=== PATIENT | male | born 1980 | race Caucasian/White ===

== ENCOUNTER 2025-06-12 22:52 | Inpatient (IN) | payer BC, SELFPAY ==
--- NOTE | 2025-06-12 | ECG_ITS ---
Test Reason : cp Blood Pressure : */* mmHG Vent. Rate : 87 BPM Atrial Rate : 87 BPM P-R Int : 122 ms QRS Dur : 84 ms QT Int : 374 ms P-R-T Axes : 66 21 59 degrees QTcB Int : 450 ms Normal sinus rhythm with sinus arrhythmia Normal ECG No previous ECGs available Referred By: Generic ED Physician Electronically Signed By: Desmond Singh
--- NOTE | ~2025-06-12 | CT_ITS ---
CLINICAL HISTORY: L posterior chest pain, pleuritic, prior PE no inj CT angiography chest with contrast. 3D Postprocessing. Comparison: None provided Findings: The heart size is normal. RV/LV ratio is normal. The thoracic aorta is normal caliber. There are multiple pulmonary arterial filling defects in the left lingular branch, left lower lobe segmental arteries, right lower lobe segmental arteries. Thyroid gland is normal. Superior mediastinum is normal. Right middle lobe airspace opacities are present. There is a small left pleural effusion. Thoracic aorta is normal. Anatomic variant common origin of the brachiocephalic and left common carotid artery are present. There is dependent atelectasis. Upper abdomen is normal. No acute osseous fracture. IMPRESSION: 1. Multifocal bilateral lobar and segmental pulmonary arterial filling defects. 2. Platelike atelectasis in the right middle and lower lobes. This document has been electronically signed by: Lance Dumont III, MD PHD on 06/13/2025 01:34:06
[2025-06-12 22:57] VITALS: BP 129/91; PULSE 79; RESP 28; TEMP 36.9; O2SAT 97; BMI 34.4
[2025-06-12 23:25] LABS: MANUAL DIFF FLAG NO
[2025-06-12 23:26] LABS: Hematocrit 40.7 % (42.0-52.0); Hemoglobin 14.7 g/dl (14.0-18.0); Imm Gran Abs Auto 0.04 X10*3/uL (0.00-0.03); Imm Gran Pct Auto 0.4 % (0.0-0.4); Lymphocytes Absolute Auto 3.0 X10*3/uL (1.2-4.9); Mean Corpuscular HGB Conc 36.1 g/dl (31.0-36.0); Mean Corpuscular Hemoglobin 29.9 pg (27.0-33.0); Mean Corpuscular Volume 82.7 fL (80.0-98.0); NRBC Abs Auto 0.000 X10*3/uL (0.0-0.012); NRBC Pct Auto 0.0 /100WBC (0.0-0.2); Platelet Count 230 X10*3/uL (160-400); Red Blood Count 4.92 X10*6/uL (4.60-5.80); White Blood Count 9.9 X10*3/uL (4.8-10.8)
--- NOTE | 2025-06-12 23:28 | ED_ITS ---
HPI - General Adult General Chief complaint: General Medical Stated complaint: CP, SOB, N/V Time Seen by Provider: 06/12/25 23:16 History of Present Illness ED Provider: Sandip Howard MD HPI narrative: 44-year-old male who presents with severe atraumatic left mid and upper back pain. There is no rash there he does report a history of PE with similar pleuritic type pain in the past. 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 Previously had varicose vein surgery prior to the 1st pulmonary embolism that he tells me was diagnosed in [place] in 2017. Not on anticoagulant now Related Data Allergies Allergy/AdvReac Type Severity Reaction Status Date / Time No Known Allergies Allergy Verified 06/12/25 23:07 [facility] Past Medical History Medical History Mood disorder Psoriatic arthritis Psoriasis Social History Social History Patient Tobacco Use Status: Never used Tobacco Smoked in Last 30 Days: No Use of substances other than those prescribed or required for medical reasons: No Advance Directives: No Advance Directives Information Provided: Yes Nutrition Risks: No Nutritional Risk Physical Exam ED Exam Exam: EXAM: Gen: Alert, awake, appears in severe pain leaning to the right side splinting with respiration no cyanosis or labored breathing Head: Atraumatic Eyes: Anicteric, Normal conjunctiva. ENT: Moist mucosa, no pallor. ? Neck: Supple. Skin: ?No observable rash or bruising on exposed or examined skin Respiratory: Splinting. Respiratory rate about 24 no cyanosis. Well-perfused good color in the extremities Cardiovascular: Regular rate and rhythm. No murmurs or rub. Well perfused periphery, warm extremities. No edema. ? Abdominal: No focal tenderness. Soft, no objective distension. No palpable masses or obvious organomegaly. ?No guarding, no rebound tenderness or other peritoneal findings. : No flank tenderness. Neuro: Alert. Gross movement of all extremities intact. ? Psych: Calm. Cooperative. MSK: No grossly visible deformity. Severe tenderness of the musculature along the left midthoracic paraspinal region Vital signs: See flowsheet Vital Signs: Vital Signs - 24 hr 06/12/25 22:57 06/12/25 23:38 06/12/25 23:41 Temperature 98.4 F Pulse Rate 79 76 Respiratory Rate 28 H 22 H Blood Pressure 129/91 H Pulse Oximetry 97 96 87 L Oxygen Delivery Method Room Air Room Air Room Air Oxygen Flow Rate 06/12/25 23:42 06/13/25 00:34 06/13/25 01:20 Temperature 97.4 F Pulse Rate 75 76 78 Respiratory Rate 24 H 22 H 18 Blood Pressure 126/76 125/86 Pulse Oximetry 94 98 98 Oxygen Delivery Method Nasal Cannula Nasal Cannula Nasal Cannula Oxygen Flow Rate 2 2 2 BMI result Body Mass Index 36.4 Medications Administered Discontinued Medications Generic Name Dose Route Start Last Admin Trade Name Freq PRN Reason Stop Dose Admin Diazepam 2.5 mg 06/12/25 23:26 06/12/25 23:33 Diazepam 10 Mg/2 Ml Cartridge IVPUSH 06/12/25 23:27 2.5 mg STAT STA Administration Heparin Sodium (Porcine) 8,700 unit 06/13/25 00:48 06/13/25 02:01 Heparin Sodium,Porcine 5,000 Unit/Ml Vial 80 unit/kg (8700 unit) 06/13/25 00:49 Not Given IVPUSH ONCE ONE Ketorolac Tromethamine 15 mg 06/12/25 23:26 06/12/25 23:33 Ketorolac Tromethamine 15 Mg/Ml Vial IVPUSH 06/12/25 23:27 15 mg ONCE ONE Administration Lidocaine 2 patch 06/12/25 23:26 06/12/25 23:33 Lidocaine 4 % Patch Adh..Patch TRANSDERMA 06/12/25 23:27 2 patch ONCE ONE Administration Protocol Morphine Sulfate 4 mg 06/12/25 23:26 06/12/25 23:33 Morphine Sulfate 4 Mg/Ml Cartridge IVPUSH 06/12/25 23:27 4 mg ONCE ONE Administration Protocol Procedures Procedure Narrative Procedure Narrative: EMERGENCY ULTRASOUND INTERPRETATION-Limited Echocardiography [This study was ordered, performed, and interpreted by myself. The study reveals: Impression: NORMAL LV FUNCTION, NO RV DYSFUNCTION, NO PERICARDIAL EFFUSION] [Emergent Cardiac for Indication: Views Used: PLAX, PSSA, A4, SX, IVC Pericardial Effusion/Tamponade Findings: NONE RV Dilation (> LV diam in 4ch apical): NONE Global LV Fxn: NORMAL IVC Dilation and Resp Variation: NORMAL Performed by: MD Anita Images were stored CPT:33671] __ EMERGENCY ULTRASOUND INTERPRETATION-Limited Point of Care Venous (DVT) [This study was ordered, performed, and interpreted by myself. The study reveals: Impression: NO EVIDENCE OF DVT. I RECOMMENDED TO THE PATIENT REPEAT ULTRASOUND IN ONE WEEK IF SYMPTOMS PERSIST.] [Indication: Laterality: Bilateral Common Femoral: -Full Compressibility: YES -Clot Seen: NO Superficial Femoral: -Full Compressibility: YES -Clot Seen: NO Popliteal: -Full Compressibility: YES -Clot Seen: NO Other: Left popliteal with hyperechoic slow flow no visible clot. Positive augmentation Performed by: Sandip Howard MD Images were stored CPT: 89733] Medical Decision Making Medical Decision Making MDM Narrative: Medical Decision Makin-year-old male with a history of PE no longer on anticoagulation with abrupt left posterior thoracic pain. Initial suspicion was musculoskeletal versus PE recurrence. No clinical signs of DVT. He was transiently hypoxic in the high 80s and started on 2 L nasal cannula. No tachycardia or hypotension measured here. Pain significantly improved after multimodal analgesia including topical lidocaine, NSAID, Valium and opioid. There is bilateral PE lobar and segmental. Troponin is negative BNP added on. Echo will be performed bedside to exclude right heart strain. Preliminary Favored Differential Diagnosis: PE back spasm muscle strain pneumothorax pulmonary infarct among additional considered etiologies Testing Interpreted Independently: See my point of care echo report ECG sinus rhythm rate 87 QTC 450 no ischemic changes no RV strain. Radiology or Lab testing Results Reviewed: Troponin negative, labs reassuring. Consults: Hospitalist Independent Historians/External Chart Reviews: Not Applicable Social Determinants of Health Impacting MDM/Planning: Not Applicable __ Pulmonary Embolism Severity Index (PESI) from [employer] on 06/13/2025 All calculations should be rechecked by clinician prior to use RESULT SUMMARY: 76 points Class II, Low Risk: 1.7-3.5% 30-day mortality in this group. INPUTS: Age ?> 44 years Sex ?> 10 = Male History of cancer ?> 0 = No History of heart failure ?> 0 = No History of chronic lung disease ?> 0 = No Heart rate >=10 ?> 0 = No Systolic BP <100 mmHg ?> 0 = No Respiratory rate >=0 ?> 0 = No Temperature <36?C/96.8?F ?> 0 = No Altered mental status (disorientation, lethargy, stupor, or coma) ?> 0 = No O2 saturation <90% ?> 20 = Yes Lab Data 06/12/25 23:20 06/12/25 23:20 Labs: Lab Results 06/12/25 06/12/25 Range/Units 23:20 23:25 WBC 9.9 (4.8-10.8) X10*3/uL RBC 4.92 (4.60-5.80) X10*6/uL Hgb 14.7 (14.0-18.0) g/dl Hct 40.7 L (42.0-52.0) % MCV 82.7 (80.0-98.0) fL MCH 29.9 (27.0-33.0) pg MCHC 36.1 H (31.0-36.0) g/dl RDW 12.2 (11.0-16.0) % Plt Count 230 (160-400) X10*3/uL MPV 11.0 (9.4-12.4) fL Immature Gran % (Auto) 0.4 (0.0-0.4) % Neut % (Auto) 59.3 (45-73) % Lymph % (Auto) 29.8 (20-40) % [place] % (Auto) 8.1 (2-11) % Eos % (Auto) 2.1 (0-4) % Baso % (Auto) 0.3 (0-2) % Lymph # (Auto) 3.0 (1.2-4.9) X10*3/uL [place] # (Auto) 0.8 (0.1-1.2) X10*3/uL Eos # (Auto) 0.2 (0.0-0.4) X10*3/uL Baso # (Auto) 0.0 (0.0-0.2) X10*3/uL Abs Immat Gran (auto) 0.04 H (0.00-0.03) X10*3/uL Absolute Neuts (auto) 5.9 (2.0-8.3) x10*3/uL Absolute Nucleated RBC 0.000 (0.0-0.012) X10*3/uL Nucleated RBC % (auto) 0.0 (0.0-0.2) /100WBC PT 13.0 H (10.9-12.4) SEC INR 1.1 (0.9-1.1) APTT 28.4 (26.0-36.8) SEC D-Dimer High Sensitivty 2991 NG/ML VBG pH 7.45 H (7.32-7.43) VBG pCO2 35 mmHg VBG pO2 48 mmHg VBG HCO3 24 (22-26) mmol/L VBG O2 Saturation 82.0 % VBG Base Excess 1.0 mmol/L Sodium 139 (135-145) mmol/L Potassium 4.1 (3.3-5.1) mmol/L Chloride 107 (96-108) mmol/L Carbon Dioxide 23 (22-29) mmol/L Anion Gap 13 (12-20) BUN 18 H (9-16) mg/dL Creatinine 0.78 (0.5-1.4) mg/dL Estim Creat Clear Calc 146.1 Estimated GFR > 60 Random Glucose 104 (60-115) mg/dL Calcium 9.6 (8.4-10.2) mg/dL Magnesium 2.0 (1.6-2.6) mg/dL Total Bilirubin 0.7 (0.0-1.0) mg/dL AST 22 (5-37) U/L ALT 17 (0-40) U/L Alkaline Phosphatase 113 (39-117) U/L Troponin I High Sens < 2.7 (<3.5-35.0) ng/L Total Protein 7.8 (6.5-8.0) g/dL Albumin 4.4 (3.5-5.0) g/dL Critical Care Time Critical Care Time Critical Care Time: Yes Total Critical Care Time: 50 Attestation: ED Critical Care: Authorized and Performed by: Sandip Howard MD Total critical care time: Approximately 50 Due to a high probability of clinically significant, life threatening deterioration, the patient required my highest level of preparedness to intervene emergently and I personally spent this critical care time directly and personally managing the patient. This critical care time included obtaining a history; examining the patient; pulse oximetry; ordering and review of studies; arranging urgent treatment with development of a management plan; evaluation of patient's response to treatment; frequent reassessment; and, discussions with other providers. This critical care time was performed to assess and manage the high probability of imminent, life-threatening deterioration that could result in multi-organ failure. It was exclusive of separately billable procedures and treating other patients and teaching time. Discharge Plan Discharge Clinical Impression: Pulmonary embolism Patient Disposition: Admitted As Inpatient Print Language: Icelandic
[2025-06-12 23:30] LABS: VBG HCO3 24 mmol/L (22-26); VBG O2 % Saturation 82.0 %
[2025-06-12 23:31] LABS: Venous Blood Gas Refer to POC result
[2025-06-12] MEDS: Lidocaine 4 % Patch ADH..PATCH 2 PATCH TRANSDERMA (23:33)
[2025-06-12] MEDS: diazePAM 10 MG/2 ML CARTRIDGE 2.5 MG IVPUSH (23:33)
[2025-06-12 23:38] VITALS: PULSE 76; RESP 22; O2SAT 96
[2025-06-12 23:40] LABS: Alanine Aminotransferase 17 U/L (0-40); Albumin Level 4.4 g/dL (3.5-5.0); Alkaline Phosphatase 113 U/L (39-117); Anion Gap 13 (12-20); Aspartate Amino Transferase 22 U/L (5-37); Blood Urea Nitrogen 18 mg/dL (9-16); Calcium 9.6 mg/dL (8.4-10.2); Carbon Dioxide 23 mmol/L (22-29); Chloride 107 mmol/L (96-108); Creatinine Clr Calc Pharmacy 146.1; Estimated Glomerular Filt Rate > 60; Magnesium 2.0 mg/dL (1.6-2.6); Potassium 4.1 mmol/L (3.3-5.1); Sodium 139 mmol/L (135-145); Total Protein 7.8 g/dL (6.5-8.0)
[2025-06-12 23:41] VITALS: O2SAT 87
[2025-06-12 23:42] VITALS: PULSE 75; RESP 24; O2SAT 94
--- NOTE | 2025-06-12 23:49 | PC.NURSE ---
pt continues to remain tachypneic/seemingly uncomfortable - sob/wob noted. pt noted to desat to 87% on RA. pt placed on 2L via NC w/ good effect. otherwise vss and up to date. nsr on the gambling monitor. medication administered per provider order. effectiveness pending. plan of care ongoing. call bellp placed within reach.
[2025-06-12 23:56] LABS: Troponin-I High Sensitivity < 2.7 ng/L (<3.5-35.0)
[2025-06-12 23:57] LABS: INTERNATIONAL NORM RATIO 1.1 (0.9-1.1); Prothrombin Time 13.0 SEC (10.9-12.4)
[2025-06-12 23:59] LABS: D Dimer High Sensitivity 2991 NG/ML
[2025-06-13] VITALS (10 sets, daily range): BP systolic 111–150; BP diastolic 57–93; PULSE 60–79; RESP 13–22; TEMP 36.2–36.8; O2SAT 93–99; BMI 36.4
--- NOTE | 2025-06-13 00:14 | PC.NURSE ---
pt to CT at this time.
--- NOTE | 2025-06-13 01:24 | PC.NURSE ---
CTA results still pending at this time. per MD order, pt will be started on heparin gtt. heparin gtt still pending pharmacy verification at this time. will administer medication when able. pt otherwise in no apparent distress at this time. resting w/ eyes closed with the lights dimmed. vss and up to date. nsr on the quality assurance monitor chassis. pt remains on 2L via NC for supplemental O2 - no sob/wob noted. respirations even/unlabored. plan of care ongoing. call llanos placed within reach.
--- NOTE | 2025-06-13 01:53 | PM.IMHP ---
History of Present Illness Date of Service: 06/13/25 Chief Complaint: chest pain This has a 44-year-old male with remote history of PE currently not on anticoagulation, psoriasis with psoriatic arthritis, mood disorder who presents to the emergency department for evaluation of chest pain and dyspnea. Patient states he had sudden onset of chest pain and back pain that started 1 day prior to presentation. Chest discomfort was constant, nonradiating, not relieved with rest and worse with deep breath. Also had associated dyspnea. No orthopnea or PND. No recent travels. Patient states he had a PE in 2017 and took 6 months of Eliquis. He denies fever, chills, palpitations, abdominal pain, changes in urinary or bowel habits. In the emergency department, patient was satting in the 80s on room air and imaging with multifocal bilateral lobar and segmental pulmonary arterial filling defects. He was initiated on IV heparin. Review of Systems Constitutional: Constitutional: Reports no additional constitutional complaints Cardiovascular: Cardiovascular: Reports chest pain and Reports dyspnea Respiratory: Respiratory: Reports dyspnea Gastrointestinal: Gastrointestinal: Reports no additional gastrointestinal complaints Genitourinary: Genitourinary: Reports no additional male genitourinary complaints [facility] Medical History Mood disorder Psoriatic arthritis Psoriasis Pertinent family history: No family history of early CAD Social History Patient Tobacco Use Status: Never used Tobacco Smoked in Last 30 Days: No Use of substances other than those prescribed or required for medical reasons: No Advance Directives: No Advance Directives Information Provided: Yes Nutrition Risks: No Nutritional Risk Meds Allergies Allergy/AdvReac Type Severity Reaction Status Date / Time No Known Allergies Allergy Verified 06/12/25 23:07 Active Medications: Current Medications Heparin Sodium (Porcine) (Heparin Sodium,Porcine 5,000 Unit/Ml Vial) 4,400 unit 40 unit/kg (4400 unit) IVPUSH PROTOCOL BOLUS PRN; Protocol PRN Reason: 40 unit/kg - Heparin Protocol Heparin Sodium (Porcine) (Heparin Sodium,Porcine 5,000 Unit/Ml Vial) 8,700 unit 80 unit/kg (8700 unit) IVPUSH PROTOCOL BOLUS PRN; Protocol PRN Reason: 80 unit/kg - Heparin Protocol Heparin Sodium/Sodium Chloride (Heparin Sodium,Porcine/1/2ns) 25,000 unit in 250 mls @ 0 mls/hr IVCONT .Q0M EBER; Protocol Physical Exam Vital Signs and Narrative: Vital Signs: Last Vital Signs Temp 97.4 F 06/13/25 00:34 Pulse 78 06/13/25 01:20 Resp 18 06/13/25 01:20 BP 125/86 06/13/25 01:20 Pulse Ox 98 06/13/25 01:20 O2 Del Method Nasal Cannula 06/13/25 01:20 O2 Flow Rate 2 06/13/25 01:20 BMI result Body Mass Index 36.4 Middle-aged male lying in bed in no distress on supplemental oxygen Neck supple, no JVD, chest wall with raised well-defined plaques Regular rate and rhythm, S1-S2 heard Regular breath sounds bilaterally, no wheezing or crackles appreciated Abdomen soft nontender, no guarding, no rigidity Patient is awake, alert and oriented to self, place, time and person ; no focal motor deficit Psych: Normal mood No pedal edema Results Labs 06/12/25 23:20 06/12/25 23:20 Labs: Laboratory Results - last 24 hr 06/12/25 06/12/25 23:20 23:25 MCV 82.7 MCH 29.9 MCHC 36.1 H RDW 12.2 Plt Count 230 MPV 11.0 Immature Gran % (Auto) 0.4 Neut % (Auto) 59.3 Lymph % (Auto) 29.8 [place] % (Auto) 8.1 Eos % (Auto) 2.1 Baso % (Auto) 0.3 Lymph # (Auto) 3.0 [place] # (Auto) 0.8 Eos # (Auto) 0.2 Baso # (Auto) 0.0 Abs Immat Gran (auto) 0.04 H Absolute Neuts (auto) 5.9 Absolute Nucleated RBC 0.000 Nucleated RBC % (auto) 0.0 PT 13.0 H INR 1.1 D-Dimer High Sensitivty 2991 VBG pH 7.45 H VBG pCO2 35 VBG pO2 48 VBG HCO3 24 VBG O2 Saturation 82.0 VBG Base Excess 1.0 Anion Gap 13 Estim Creat Clear Calc 146.1 Estimated GFR > 60 Random Glucose 104 Calcium 9.6 Magnesium 2.0 Total Bilirubin 0.7 AST 22 ALT 17 Alkaline Phosphatase 113 Total Protein 7.8 Albumin 4.4 Assessment and Plan (1) Pulmonary embolism: Status: Acute Plan This has a 44-year-old male with remote history of PE currently not on anticoagulation, psoriasis with psoriatic arthritis, mood disorder who presents to the emergency department for evaluation of chest pain and dyspnea. #. Acute hypoxemic respiratory failure due to acute non massive PE: Will admit patient with IV heparin. Transition to p.o. anticoagulants prior to discharge. Vascular surgery eval. Will need outpatient Heme-Onc follow-up. Monitor oxygen saturation and wean as tolerated #. Mood disorder: Continue home mood stabilizers Med rec pending DVT prophylaxis: IV heparin Full code Admit as inpatient and will require two night minimum hospital stay for supplemental oxygen, IV heparin (as above), which is not possible in a lesser acute setting. Quality Stroke Does the patient have a stroke diagnosis?: No VTE Prior VTE?: No VTE Risk Level:: Medical - moderate - high VTE Device Contraindication: Treatment Not Indicated VTE Drug Contraindication: N/A - Med Ordered
[2025-06-13 02:06] LABS: Partial Thromboplastin Time 28.4 SEC (26.0-36.8)
[2025-06-13] MEDS: Heparin Sodium,Porcine/1/2NS 25,000 UNIT/250 ML IV.SOLN 16.1 UNIT IVCONT ×2 (02:30→16:40)
[2025-06-13 03:13] LABS: B Type Natriuretic Peptide < 10 pg/mL (<100)
--- NOTE | 2025-06-13 08:25 | PHA.MEDREC ---
Addendum entered by Joe Bah RPh 06/13/25 08:43: MED REC REVIEWED BY [facility] Original Note: Pharmacy Consult ? Medication Reconciliation Pharmacy has completed the medication reconciliation. Spoke to patient to confirm medication. Patient states he is no longer taking Cimzia 400 mg( now on skyrizi), Fluoxetine 60 mg, Lamotrigine 200 mg, [place] Carb 900 mg and Zoryve cream. Patient reported he stopped these medication a few weeks ago. Patient confirmed Skyrizi 150 mg q28 days, last dose 05/31/25 and Lisdexamfetamine 30 mg.
[2025-06-13] MEDS: 0.9 % Sodium Chloride Flush 3 ML SYRINGE IVFLUSH ×2 (08:52→15:01)
[2025-06-13 08:56] LABS: Hematocrit 41.6 % (42.0-52.0); Hemoglobin 14.0 g/dl (14.0-18.0); Mean Corpuscular HGB Conc 33.7 g/dl (31.0-36.0); Mean Corpuscular Hemoglobin 28.9 pg (27.0-33.0); Mean Corpuscular Volume 86.0 fL (80.0-98.0); NRBC Abs Auto 0.000 X10*3/uL (0.0-0.012); NRBC Pct Auto 0.0 /100WBC (0.0-0.2); Platelet Count 198 X10*3/uL (160-400); Red Blood Count 4.84 X10*6/uL (4.60-5.80); White Blood Count 7.2 X10*3/uL (4.8-10.8)
[2025-06-13 09:05] LABS: PTT Heparin Drip 82.0 SEC (53-77.9)
[2025-06-13 09:09] LABS: Anion Gap 16 (12-20); Blood Urea Nitrogen 19 mg/dL (9-16); Calcium 9.3 mg/dL (8.4-10.2); Carbon Dioxide 24 mmol/L (22-29); Chloride 105 mmol/L (96-108); Creatinine Clr Calc Pharmacy 160.6; Estimated Glomerular Filt Rate > 60; Potassium 4.5 mmol/L (3.3-5.1); Sodium 140 mmol/L (135-145)
--- NOTE | 2025-06-13 09:59 | MHC.CM.PN ---
Pt lives with his , sge is HCP, copy requested. Pt. does not use home health services or DME. His PCP is Pina Harry MD. in [place], [place]. Pt. moved to [place] from [place], still see this MD, he works in [place]. He is able to arrange transport home at [place], DCP; home, self care, CM to follow for [place] needs.
--- NOTE | 2025-06-13 14:21 | HO.PM.IMPN ---
Subjective Subjective Date of Service: 06/13/25 Interval History: pulm embolism Physical Exam Vital Signs: Vital Signs: Last Vital Signs Temp 97.3 F 06/13/25 11:05 Pulse 75 06/13/25 11:05 Resp 18 06/13/25 11:05 BP 116/74 06/13/25 11:05 Pulse Ox 95 06/13/25 11:05 O2 Del Method Nasal Cannula 06/13/25 11:05 O2 Flow Rate 1 06/13/25 11:05 BMI result Body Mass Index 36.4 Objective Data Active Medications Acetaminophen (Acetaminophen 325 Mg Tablet) 975 mg PO Q6H PRN PRN Reason: Pain, Mild 1-3,fever,headache Calcium Carbonate (Calcium Carbonate 750 Mg Tab.Chew) 750 mg PO Q4H PRN PRN Reason: Heartburn Docusate Sodium (Docusate Sodium 100 Mg Capsule) 100 mg PO BID [facility] Last Admin: 06/13/25 09:44 Dose: Not Given Documented By: SERGIO Non-Admin Reason: Patient Refused Heparin Sodium (Porcine) (Heparin Sodium,Porcine 5,000 Unit/Ml Vial) 4,600 unit IVPUSH PROTOCOL BOLUS PRN; Protocol PRN Reason: 40 unit/kg - Heparin Protocol Heparin Sodium (Porcine) (Heparin Sodium,Porcine 5,000 Unit/Ml Vial) 9,200 unit IVPUSH PROTOCOL BOLUS PRN; Protocol PRN Reason: 80 unit/kg - Heparin Protocol Heparin Sodium/Sodium Chloride (Heparin Sodium,Porcine/1/2ns) 25,000 unit in 250 mls @ 0 mls/hr IVCONT .Q0M [facility]; Protocol Last Titration: 06/13/25 09:14 Dose: 12 units/kg/hr, 13.8 mls/hr Documented By: SERGIO Co-signed By: ALTAGRACIA Lidocaine (Lidocaine 4 % Patch Adh..Patch) 2 patch TRANSDERMA DAILY [facility]; Protocol Magnesium Hydroxide (Milk Of Magnesia 30 Ml Oral.Susp) 30 ml PO DAILY PRN PRN Reason: Constipation Melatonin (Melatonin 3 Mg Tablet) 6 mg PO BEDTIME PRN PRN Reason: Insomnia Morphine Sulfate (Morphine Sulfate 4 Mg/Ml Cartridge) 4 mg IVPUSH Q4H PRN; Protocol PRN Reason: Pain, Severe (Pain Scale 7-10) Ondansetron HCl (Ondansetron Hcl 4 Mg/2 Ml Vial) 4 mg IVPUSH Q8H PRN PRN Reason: Nausea and Vomiting Sodium Chloride (0.9 % Sodium Chloride Flush 3 Ml Syringe) 3 ml IVFLUSH QSHIFT [facility] Last Admin: 06/13/25 08:52 Dose: 3 ml Documented By: SERGIO Labs 06/13/25 08:45 06/13/25 08:45 Labs: Laboratory Results - last 24 hr 06/12/25 06/12/25 06/13/25 23:20 23:25 08:45 MCV 82.7 86.0 MCH 29.9 28.9 MCHC 36.1 H 33.7 RDW 12.2 12.4 Plt Count 230 198 MPV 11.0 11.3 Immature Gran % (Auto) 0.4 Neut % (Auto) 59.3 Lymph % (Auto) 29.8 [place] % (Auto) 8.1 Eos % (Auto) 2.1 Baso % (Auto) 0.3 Lymph # (Auto) 3.0 [place] # (Auto) 0.8 Eos # (Auto) 0.2 Baso # (Auto) 0.0 Abs Immat Gran (auto) 0.04 H Absolute Neuts (auto) 5.9 Absolute Nucleated RBC 0.000 0.000 Nucleated RBC % (auto) 0.0 0.0 PT 13.0 H INR 1.1 APTT 28.4 aPTT Heparin Protocol 82.0 H D-Dimer High Sensitivty 2991 VBG pH 7.45 H VBG pCO2 35 VBG pO2 48 VBG HCO3 24 VBG O2 Saturation 82.0 VBG Base Excess 1.0 Anion Gap 13 16 Estim Creat Clear Calc 146.1 160.6 Estimated GFR > 60 > 60 Random Glucose 104 89 Calcium 9.6 9.3 Magnesium 2.0 Total Bilirubin 0.7 AST 22 ALT 17 Alkaline Phosphatase 113 B-Natriuretic Peptide < 10 Total Protein 7.8 Albumin 4.4 Quality Stroke Does the patient have a stroke diagnosis?: No VTE Prior VTE?: No VTE Risk Level:: Medical - moderate - high VTE Device Contraindication: Treatment Not Indicated VTE Drug Contraindication: N/A - Med Ordered
--- NOTE | 2025-06-13 14:24 | PM.EVENT ---
Event Note Date of Service: 06/14/25 Event Note: pulm embolism hypoxia improving has pleurtic discomfort no cough or fever or sputum plan: continue AC /pain control: Patient hypoxia seems to be improving significantly, vascular evaluation pending Time Spent With Patient Time: Total time managing care of this patient today ____ minutes.
[2025-06-13 14:52] LABS: PTT Heparin Drip 40.0 SEC (53-77.9)
[2025-06-13] MEDS: Lidocaine 4 % Patch ADH..PATCH 2 PATCH TRANSDERMA (16:12)
[2025-06-13 20:50] LABS: PTT Heparin Drip 61.2 SEC (53-77.9)
[2025-06-14 02:45] LABS: Hematocrit 40.5 % (42.0-52.0); Hemoglobin 13.7 g/dl (14.0-18.0); Mean Corpuscular HGB Conc 33.8 g/dl (31.0-36.0); Mean Corpuscular Hemoglobin 28.7 pg (27.0-33.0); Mean Corpuscular Volume 84.9 fL (80.0-98.0); NRBC Abs Auto 0.000 X10*3/uL (0.0-0.012); NRBC Pct Auto 0.0 /100WBC (0.0-0.2); Platelet Count 226 X10*3/uL (160-400); Red Blood Count 4.77 X10*6/uL (4.60-5.80); White Blood Count 7.5 X10*3/uL (4.8-10.8)
[2025-06-14 02:57] LABS: PTT Heparin Drip 53.2 SEC (53-77.9)
[2025-06-14 03:08] VITALS: BP 133/56; PULSE 81; RESP 16; TEMP 36.4; O2SAT 99
[2025-06-14 06:31] LABS: INTERNATIONAL NORM RATIO 1.1 (0.9-1.1); Prothrombin Time 13.0 SEC (10.9-12.4)
[2025-06-14 06:57] VITALS: BP 109/67; PULSE 75; RESP 18; TEMP 36.2; O2SAT 98
[2025-06-14] MEDS: 0.9 % Sodium Chloride Flush 3 ML SYRINGE IVFLUSH (07:48)
[2025-06-14] MEDS: Lidocaine 4 % Patch ADH..PATCH 2 PATCH TRANSDERMA (07:49)
[2025-06-14] MEDS: Heparin Sodium,Porcine/1/2NS 25,000 UNIT/250 ML IV.SOLN 16.1 UNIT IVCONT (08:02)
[2025-06-14 10:02] LABS: Appearance Urine Clear; Glucose Urine UA Negative (Negative); PH 5.0 (5.0-9.0); Specific Gravity - Urine >= 1.030 (1.005-1.025)
[2025-06-14 10:56] VITALS: BP 106/66; PULSE 75; RESP 18; TEMP 36.3; O2SAT 93
--- NOTE | 2025-06-14 14:22 | PM.CNGS ---
History of Present Illness Consult details Consult date: 06/14/25 Reason for consult: other (PE) Narrative: Very pleasant 44-year-old gentleman presents for evaluation regarding pulmonary embolism. He is fairly active gentleman it began acutely about a day or so ago. He had difficulty come getting out of bed experience some shortness of breath along with chest discomfort that made him present to the emergency room. Upon workup he was noted to have pulmonary embolisms. Upon discussion with him a actually noted that he had a prior history of PE. This occurred back in 2016 or 2017 after venous procedures at [facility] in [facility] under Dr. Nate gray. At that time after the procedure he developed a pulmonary embolism and was treated with anticoagulation. Since that he has had no other episodes. There was no acute changes he denies any recent trauma he has not been sedentary he now presents for vascular evaluation. Review of Systems Review of Systems: Yes all other systems are reviewed and are negative Constitutional: Constitutional: Reports no additional constitutional complaints ENT: Reports Normal hearing present Cardiovascular: Cardiovascular: Denies chest pain, Denies chest pain at rest, Denies chest pain with activity and Denies pedal edema Respiratory: Respiratory: Denies cough Gastrointestinal: Gastrointestinal: Denies abdominal pain Musculoskeletal: Musculoskeletal: Denies abnormal gait, Denies muscle cramps and Denies radiating pain into limb Integumentary/Breasts: Skin/Breast: Denies skin ulcer and Denies wounds Neurologic: Reports Normal hearing present and Denies abnormal gait Psychiatric: Psychiatric: Reports no additional psychiatric complaints PMFSH Past Medical History Medical History Mood disorder Psoriatic arthritis Psoriasis Social History Social History Patient Tobacco Use Status: Never used Tobacco Smoked in Last 30 Days: No Use of substances other than those prescribed or required for medical reasons: No Currently Displaying Signs/Symptoms of Drug Intoxication Withdrawal: No Advance Directives: No Advance Directives Information Provided: Yes Do you have a plan to hurt others: No Plan Nutrition Risks: No Nutritional Risk service: No Meds Allergies Allergy/AdvReac Type Severity Reaction Status Date / Time No Known Allergies Allergy Verified 06/12/25 23:07 Active Medications: Current Medications Acetaminophen (Acetaminophen 325 Mg Tablet) 975 mg PO Q6H PRN PRN Reason: Pain, Mild 1-3,fever,headache Calcium Carbonate (Calcium Carbonate 750 Mg Tab.Chew) 750 mg PO Q4H PRN PRN Reason: Heartburn Docusate Sodium (Docusate Sodium 100 Mg Capsule) 100 mg PO BID [facility] Last Admin: 06/14/25 07:48 Dose: 100 mg Heparin Sodium (Porcine) (Heparin Sodium,Porcine 5,000 Unit/Ml Vial) 4,600 unit IVPUSH PROTOCOL BOLUS PRN; Protocol PRN Reason: 40 unit/kg - Heparin Protocol Last Admin: 06/13/25 15:00 Dose: 4,600 unit Heparin Sodium (Porcine) (Heparin Sodium,Porcine 5,000 Unit/Ml Vial) 9,200 unit IVPUSH PROTOCOL BOLUS PRN; Protocol PRN Reason: 80 unit/kg - Heparin Protocol Heparin Sodium/Sodium Chloride (Heparin Sodium,Porcine/1/2ns) 25,000 unit in 250 mls @ 0 mls/hr IVCONT .Q0M [facility]; Protocol Last Admin: 06/14/25 08:02 Dose: 14 units/kg/hr, 16.1 mls/hr Lidocaine (Lidocaine 4 % Patch Adh..Patch) 2 patch TRANSDERMA DAILY [facility]; Protocol Last Admin: 06/14/25 07:49 Dose: 2 patch Magnesium Hydroxide (Milk Of Magnesia 30 Ml Oral.Susp) 30 ml PO DAILY PRN PRN Reason: Constipation Melatonin (Melatonin 3 Mg Tablet) 6 mg PO BEDTIME PRN PRN Reason: Insomnia Morphine Sulfate (Morphine Sulfate 4 Mg/Ml Cartridge) 4 mg IVPUSH Q4H PRN; Protocol PRN Reason: Pain, Severe (Pain Scale 7-10) Last Admin: 06/14/25 07:48 Dose: 4 mg Ondansetron HCl (Ondansetron Hcl 4 Mg/2 Ml Vial) 4 mg IVPUSH Q8H PRN PRN Reason: Nausea and Vomiting Sodium Chloride (0.9 % Sodium Chloride Flush 3 Ml Syringe) [facility] Last Admin: 06/14/25 07:48 Dose: 3 ml Home Medications ?Medication ?Instructions ?Recorded ?Confirmed ?Last Taken ?Type lisdexamfetamine 30 mg capsule 30 mg PO DAILY 06/13/25 06/13/25 06/11/25 History risankizumab-rzaa 150 mg/mL 150 mg subcut Q28D 06/13/25 06/13/25 05/31/25 History subcutaneous pen injector (Skyrizi) Physical Exam Vital Signs: Vital Signs: Last Vital Signs Temp 97.4 F 06/14/25 10:56 Pulse 75 06/14/25 10:56 Resp 18 06/14/25 10:56 BP 106/66 06/14/25 10:56 Pulse Ox 93 06/14/25 10:56 O2 Del Method Room Air 06/14/25 10:56 O2 Flow Rate 1 06/14/25 06:57 BMI result Body Mass Index 36.4 Const: General: cooperative, healthy appearing and comfortable Orientation/consciousness: oriented to person, oriented to place and oriented to time HEENT: Head: Yes normal to inspection Neck: Neck: Yes normal visual inspection Carotids: no bruits Chest: Chest palpation & inspection: normal inspection of the chest Resp: Effort & Inspection: normal respiratory effort and able to speak in complete sentences Auscultation: clear to auscultation bilaterally, no crackles, no rales, no rhonchi and no wheezes Cardio: Rate: regular rate Rhythm: regular rhythm Heart sounds: S1 normal heart sound present and S2 normal heart sound present Bruits: no carotid bruits Peripheral pulses: Peripheral pulses 2+ throughout GI: Inspection: Yes normal to inspection Skin: Wounds: no wounds Hair: normal Neuro: General: oriented to person, oriented to place and oriented to time Cranial nerves: Yes CN's II-XII intact bilaterally and Yes Normal hearing present Cognition (Neuro): normal cognition Motor exam (neuro): 5/5 motor strength present throughout Extrem: Other: venous exam: Bilateral soft calfs General: No clubbing, No cyanosis and No edema Psych: Appearance: grossly normal Mental Status: mental status grossly normal Speech and movement: Normal speech and movement present Results Labs 06/14/25 02:33 06/13/25 08:45 Labs: Abnormal lab results 06/13/25 06/14/25 06/14/25 Range/Units 14:31 02:33 06:16 Hgb 13.7 L (14.0-18.0) g/dl Hct 40.5 L (42.0-52.0) % PT 13.0 H (10.9-12.4) SEC aPTT Heparin Protocol 40.0 L D (53-77.9) SEC Ur Specific [place] (1.005-1.025) 06/14/25 Range/Units 09:33 Hgb (14.0-18.0) g/dl Hct (42.0-52.0) % PT (10.9-12.4) SEC aPTT Heparin Protocol (53-77.9) SEC Ur Specific [place] >= 1.030 H (1.005-1.025) Short CBC 06/14/25 Range/Units 02:33 WBC 7.5 (4.8-10.8) X10*3/uL Hgb 13.7 L (14.0-18.0) g/dl Hct 40.5 L (42.0-52.0) % Plt Count 226 (160-400) X10*3/uL Urine 06/14/25 Range/Units 09:33 Urine Color Yellow Urine Appearance Clear Urine pH 5.0 (5.0-9.0) Ur Specific [place] >= 1.030 H (1.005-1.025) Urine Protein Negative (Neg-Trace) mg/dL Urine Glucose (UA) Negative (Negative) mg/dL All other labs normal. Assessment and Plan (1) Pulmonary embolism: Qualifiers: Pulmonary embolism type: unspecified Chronicity: acute Acute cor pulmonale presence: unspecified Qualified Code(s): I26.99 - Other pulmonary embolism without acute cor pulmonale Status: Acute Plan In short patient has pulmonary embolism. These are in the subsegmental branches and lower lobes. Does not appear to be amenable to thrombectomy. This was all discussed with the patient. Would recommend p.o. anticoagulation. In addition as an outpatient would recommend Hematology-Oncology workup as there was no inciting event and this was the 2nd event of a pulmonary embolism. He can follow up with us on an as-needed basis. Thank you for allowing us to assist in his care. If there are any questions or concerns please do not hesitate to contact us. Procedures Date of Service Date of Service: 06/14/25
[2025-06-14 15:50] VITALS: BP 114/71; PULSE 74; RESP 18; TEMP 36.4; O2SAT 94
--- NOTE | 2025-06-14 16:23 | PM.DS ---
DS: Providers Provider Date of Service: 06/14/25 Date of admission: 06/13/25 01:52 Date of discharge: 06/14/25 Primary care physician: Unknown Physician Consults: 06/13/25 02:09 Consult to Vascular Surgery Routine Consulting Provider: [facility] [place] V[facility] Services Reason for consultation: PE Attending physician on discharge: Satya Gonzalez Discharging clinician: Satya Gonzalez DS: Diagnosis Discharge Diagnosis (1) Pulmonary embolism: Status: Acute DS: Summary Hospital Course Hospital Course: HPi: 44-year-old male with remote history of PE currently not on anticoagulation, psoriasis with psoriatic arthritis, mood disorder who presents to the emergency department for evaluation of chest pain and dyspnea. Patient states he had sudden onset of chest pain and back pain that started 1 day prior to presentation. Chest discomfort was constant, nonradiating, not relieved with rest and worse with deep breath. Also had associated dyspnea. No orthopnea or PND. No recent travels. Patient states he had a PE in 2017 and took 6 months of Eliquis. He denies fever, chills, palpitations, abdominal pain, changes in urinary or bowel habits. In the emergency department, patient was satting in the 80s on room air and imaging with multifocal bilateral lobar and segmental pulmonary arterial filling defects. He was initiated on IV heparin. Hospital course: 44-year-old male with remote history of PE currently not on anticoagulation, psoriasis with psoriatic arthritis, mood disorder who presents to the emergency department for evaluation of chest pain and dyspnea. Acute hypoxemic respiratory failure due to acute non massive PE: patient started with IV heparin, pain management, oxygen: With above supportive care patient seems to be improved significantly, off oxygen, ambulating fine without oxygen, sats with ambulation around 95% on room air. Patient says pain also improved significantly. Seen by vascular:patient has pulmonary embolism. These are in the subsegmental branches and lower lobes. Does not appear to be amenable to thrombectomy. Would recommend p.o. anticoagulation. Will need outpatient Heme-Onc follow-up. Monitor oxygen saturation and wean as tolerated. plan: Continue Eliquis 10 mg(2 tabs) p.o. b.i.d. until 06/20/25 then switched to Eliquis 5 mg(1 tab) p.o. b.i.d. afterwards. Duration of anticoagulation will be decided outpatient with PCP/Hematology. Patient will benefit from outpatient hematology evaluation for further workup. Oxycodone , Tylenol, lidocaine patch limited supply given for pain. Avoid aspirin or NSAIDs or any blood thinner while on Eliquis. If any new symptoms go to the nearest emergency room for further evaluation. Above management discussed with the patient and his at bedside in detail length they both understand and in agreement with the above plan, time spent 45 minute. All questions answered. Staff was present during conversation. Time Attestation Total time managing care of this patient today: 45 mintues. Discharge Coordination Time (in mins): 45 min Quality: Safe Use of Opioids Does Pt have an Active Cancer Diagnosis on the Problem List?: No Quality: Stroke Does the patient have a stroke diagnosis?: No Physical Exam Exam: Exam: Appearance: Alert.? Oriented X3.? cvs: rrr, [id number] , no murmur res: clear to auscultation ,no rhonchii or wheezing abd: no rebound or guarding ,nt, bs present. ext pulses present , no cyanosis. neuro: axo3 , nonfocal. Vital Signs: Vital Signs: Last Vital Signs Temp 97.5 F 06/14/25 15:50 Pulse 74 06/14/25 15:50 Resp 18 06/14/25 15:50 BP 114/71 06/14/25 15:50 Pulse Ox 94 06/14/25 15:50 O2 Del Method Room Air 06/14/25 15:50 O2 Flow Rate 1 06/14/25 06:57 BMI result Body Mass Index 36.4 DS: Data Data Completed and Pending Labs on day of discharge: Laboratory Results - last 24 hr 06/13/25 06/14/25 06/14/25 20:30 02:33 06:16 WBC 7.5 RBC 4.77 Hgb 13.7 L Hct 40.5 L MCV 84.9 MCH 28.7 MCHC 33.8 RDW 12.2 Plt Count 226 MPV 11.3 Absolute Nucleated RBC 0.000 Nucleated RBC % (auto) 0.0 PT 13.0 H INR 1.1 aPTT Heparin Protocol 61.2 D 53.2 Urine Color Urine Appearance Urine pH Ur Specific [place] Urine Protein Urine Glucose (UA) Urine Ketones Urine Blood Urine Nitrite Ur Leukocyte Esterase Urine RBC Urine WBC Ur Squamous Epith Cells Urine Bacteria Hyaline Casts 06/14/25 09:33 WBC RBC Hgb Hct MCV MCH MCHC RDW Plt Count MPV Absolute Nucleated RBC Nucleated RBC % (auto) PT INR aPTT Heparin Protocol Urine Color Yellow Urine Appearance Clear Urine pH 5.0 Ur Specific [place] >= 1.030 H Urine Protein Negative Urine Glucose (UA) Negative Urine Ketones Negative Urine Blood Negative Urine Nitrite Negative Ur Leukocyte Esterase Negative Urine RBC 0-2 Urine WBC 0-5 Ur Squamous Epith Cells 0-2 Urine Bacteria None Seen Hyaline Casts 0-2 Imaging Chest x-ray: My impression: mri: 1. Multifocal bilateral lobar and segmental pulmonary arterial filling defects. 2. Platelike atelectasis in the right middle and lower lobes. Discharge Plan Discharge Anticipated Discharge Date/Time: 06/14/25 16:15 Patient Disposition: Home, Self-Care Discharge Diagnosis: pulmonary embolism Referrals: Physician,Unknown J [Primary Care Provider, Medical] - 1 Week Discharge Medications: New Eliquis 5 mg Tablet 10 mg PO BID Qty: 90 0RF Rx Instructions: Take Eliquis 2 tablets(10 mg) p.o. b.i.d. for 1 week until june 20, then switched to Eliquis 5 mg (1 tablet) p.o. b.i.d. afterwards(on 06/21/2025) docusate sodium 100 mg Capsule 100 mg PO BID Qty: 30 0RF acetaminophen 325 mg Tablet 975 mg PO Q6H PRN (Reason: Pain, Mild 1-3,Fever,Headache) Qty: 20 0RF lidocaine [Lidocaine Pain Relief] 4 % Adhesive Patch,Medicated 2 patch transdermal DAILY Qty: 14 0RF Protocol: Apply to: Apply to: Affected area oxycodone 5 mg capsule 5 mg PO Q8H PRN (Reason: pain) Qty: 14 0RF Rx Instructions: Partial Fill upon patient request. polyethylene glycol 3350 [Miralax] 17 gram/dose powder 17 g PO DAILY PRN (Reason: constipation) Qty: 119 0RF Continued lisdexamfetamine 30 mg capsule 30 mg PO DAILY Skyrizi 150 mg/mL pen injector 150 mg SUBCUT Q28D Discharge Orders: Discharge Order (Routine); Ordered 06/14/25 Ordered By: Satya Gonzalez Diet: Advance to usual diet Activity on Discharge: As tolerated Stand Alone Forms: Patient Portal Discharge page Print Language: [place]ian Care Plan Goals: Continue Eliquis 10 mg(2 tabs) p.o. b.i.d. until 06/20/25 then switched to Eliquis 5 mg(1 tab) p.o. b.i.d. afterwards. Duration of anticoagulation will be decided outpatient with PCP/Hematology. Patient will benefit from outpatient hematology evaluation for further workup. Oxycodone , Tylenol, lidocaine patch limited supply given for pain. Avoid aspirin or NSAIDs or any blood thinner while on Eliquis. If any new symptoms go to the nearest emergency room for further evaluation. Health Concerns: As above. Plan of Treatment: As above. Assessment: As above. Discharge Date/Time: 06/14/25 17:42
== END 2025-06-14 17:42 | disposition home or self-care (01) | DRG 134 ==
LOC: HO.ED 06-13 02:17 → HO.EDOVER 06-13 02:40 → HO.IMC 06-13 03:13
PROVIDERS: Admitting Provider Student in an Organized Health Care Education/Training Program; Emergency Provider Emergency Medicine; Visit Provider Internal Medicine
DX: I26.99 Other pulmonary embolism without acute cor pulmonale (principal); J96.01 Acute respiratory failure with hypoxia; L40.50 Arthropathic psoriasis, unspecified; F39 Unspecified mood [affective] disorder; Z86.711 Personal history of pulmonary embolism; Z79.620 Long term (current) use of immunosuppressive biologic; Z79.899 Other long term (current) drug therapy
CPT/HCPCS: 36415; 71275; 80048; 80053; 81001; 82803; 83735; 83880; 84484; 85025; 85027; 85379; 85610; 85730; 93005; 99285; J1644; J1885; J2270; J3360

== ENCOUNTER → 2025-06-12 22:56 | Outpatient (BNV) | payer BC, SELFPAY | PROVIDERS: Admitting Provider Student in an Organized Health Care Education/Training Program; Emergency Provider Emergency Medicine; Visit Provider Internal Medicine Cardiovascular Disease | DX: R07.9 Chest pain, unspecified (principal) | CPT/HCPCS: 93010 ==

== ENCOUNTER → 2025-06-13 00:01 | Outpatient (BNV) | payer BC, SELFPAY | PROVIDERS: Emergency Provider Emergency Medicine; Visit Provider Student in an Organized Health Care Education/Training Program | DX: I26.99 Other pulmonary embolism without acute cor pulmonale (principal) | CPT/HCPCS: 99222; 99239; 99499 ==

== ENCOUNTER → 2025-06-13 01:52 | Outpatient (BNV) | payer BC, SELFPAY | PROVIDERS: Admitting Provider Student in an Organized Health Care Education/Training Program; Emergency Provider Emergency Medicine; Visit Provider Surgery Vascular Surgery | DX: I26.99 Other pulmonary embolism without acute cor pulmonale (principal) | CPT/HCPCS: 99254 ==

== ENCOUNTER → 2025-06-13 | Outpatient (BNV) | payer BC, SELFPAY | PROVIDERS: Emergency Provider Emergency Medicine; Visit Provider Radiology Diagnostic Radiology | DX: R07.9 Chest pain, unspecified (principal) | CPT/HCPCS: 71275 ==